=== PATIENT | male | born 1955 | race Caucasian/White ===

== ENCOUNTER 2021-10-27 12:01 | Inpatient (IN) | payer MEDICARE ==
[2021-10-27] VITALS (7 sets, daily range): BP systolic 100–114; BP diastolic 60–78
[~2021-10-27] VITALS: Ht 182.9 cm; Wt 84.0 kg
--- NOTE | 2021-10-27 12:19 | NUR ---
PATIENT TO ROOM VIA WHEELCHAIR AND PHYSICIAN NOTIFIED OF STATUS
[2021-10-27 13:08] LABS: HEMATOCRIT 44.3 % (39.0-50.0); HEMOGLOBIN 15.3 g/dl (14.0-18.0); IMMATURE GRANULOCYTES 0.6 % (0.0-5.0); MEAN CELL VOLUME 101.4 fL CALC (80.0-100.0); MEAN CORPUSCULAR HGB CONC 34.5 g/dL CAL (32.0-36.0); NEUT# 9.92 thou/uL (1.82-7.42); RED BLOOD COUNT 4.37 mill/uL (4.70-6.10); RED CELL DISTRI WIDTH 13.3 % (11.5-15.5)
--- NOTE | 2021-10-27 13:20 | NUR ---
PT ON HIGH FLOW OXYGEN, TOLERATING WELL. DENIES ANY NEEDS AT THIS TIME.
[2021-10-27 13:25] LABS: ALBUMIN 3.6 g/dL (3.2-5.0); ALKALINE PHOSPHATASE 192 u/l (38-126); ANION GAP 13 (6-22 (CALC)); BILIRUBIN, TOTAL 1.9 mg/dL (0.0-1.4); BUN 22 mg/dL (8-23); BUN/CREATININE RATIO 24 (12-20 (CALC)); CARBON DIOXIDE 31 mmol/l (22-30); CHLORIDE 96 mmol/l (95-108); CREATININE 0.9 mg/dL (0.7-1.3); GFR > 60 ML/MIN (>=60 (CALC)); GFR FOR AFR.AMER. > 60 ML/MIN (>=60 (CALC)); POTASSIUM 3.6 mmol/l (3.5-5.1); SGOT/AST 101 u/l (19-48); SODIUM 136 mmol/l (137-146); TOTAL PROTEIN 6.8 g/dL (6.3-8.2)
[2021-10-27 13:36] LABS: MYOGLOBIN 70 ng/mL (0 - 121)
--- NOTE | 2021-10-27 14:31 | NUR ---
PT ORIGINALLY PLACED ON 8 LITER HFNC, WHICH HAD TO BE INCREASED TO 10 LITER HFNC. ABGS DRAWN ON 8 LITER HFNC, AND ON 10 LITER HFNC. PAO2 REMAINED LOW ON THE SECOND ABG. DR. LANGSTON ORDERED CPAP. PT PLACED ON CPAP 14 AT 75%. PTS SATS INCREASED TO 95%-96% ON THOSE SETTINGS. RN/RT TO CONTINUE TO EVALUATE.
--- NOTE | 2021-10-27 14:40 | NUR ---
PATIENT PLACED ON C-PAP BY RESPIRATORY DUE TO ABG RESULTS. PT TOLERATING WELL. DENIES ANY NEEDS AT THIS TIME.
--- NOTE | 2021-10-27 15:40 | NUR ---
PT REMAINS ON C-PAP, TOLERATING WELL. DENIES NEEDS AT THIS TIME.
--- NOTE | 2021-10-27 15:53 | NUR ---
FIO2 DECREASED FROM 75% TO 70%. SATS 97% ON CPAP 14 70%.
--- NOTE | 2021-10-27 17:15 | NUR ---
PT STATES C-PAP IS GIVING HIM A HEADACHE. DENIES ANY FURTHER NEEDS AT THIS TIME.
--- NOTE | 2021-10-27 19:23 | NUR ---
65 yr old white make admitted icu8 per stretcher from er. transferred self to bed. bed weight obtained. o2 cont per 100% nrb. no resp diff. satellite project site monitor shows sinus rhythm hr 83. #20 rac saline lock. history obtained per pt. oriented to room. fall & air/contact precautions initiated. pt requested supper meal he brought from er heated up. rt here & placed on hfnc.
--- NOTE | 2021-10-27 19:30 | NUR ---
BEDSIDE REPORT GIVEN TO STEPHANIE WILDE IN ICU
[2021-10-27] MEDS ORDERED: TRAMADOL HCL50 MG PO (20:35)
[2021-10-27] MEDS ORDERED: NABUMETONE500 MG PO (20:37)
--- NOTE | 2021-10-27 22:00 | NUR ---
eyes closed. no distress. o2 cont.
[2021-10-28] VITALS (14 sets, daily range): BP systolic 95–134; BP diastolic 68–83
--- NOTE | 2021-10-28 | NUR ---
eyes closed. o2 cont. cardiac tech shows sinus rhythm.
--- NOTE | 2021-10-28 02:00 | NUR ---
resting quietly. resps even & unlabored. o2 cont.
--- NOTE | 2021-10-28 04:00 | NUR ---
eyes closed. no distress. o2 cont.
--- NOTE | 2021-10-28 05:34 | NUR ---
lab here. blood drawn.
[2021-10-28 06:05] LABS: HEMATOCRIT 39.5 % (39.0-50.0); HEMOGLOBIN 13.5 g/dl (14.0-18.0); IMMATURE GRANULOCYTES 1.5 % (0.0-5.0); MEAN CELL VOLUME 102.1 fL CALC (80.0-100.0); MEAN CORPUSCULAR HGB 34.9 pG CALC (26.0-32.0); MEAN CORPUSCULAR HGB CONC 34.2 g/dL CAL (32.0-36.0); NEUT# 4.37 thou/uL (1.82-7.42); RED BLOOD COUNT 3.87 mill/uL (4.70-6.10); RED CELL DISTRI WIDTH 13.5 % (11.5-15.5)
[2021-10-28 06:44] LABS: ALKALINE PHOSPHATASE 156 u/l (38-126); BUN 21 mg/dL (8-23); BUN/CREATININE RATIO 26 (12-20 (CALC)); CARBON DIOXIDE 34 mmol/l (22-30); CHLORIDE 103 mmol/l (95-108); CREATININE 0.8 mg/dL (0.7-1.3); GFR > 60 ML/MIN (>=60 (CALC)); GFR FOR AFR.AMER. > 60 ML/MIN (>=60 (CALC)); SGOT/AST 68 u/l (19-48); SODIUM 138 mmol/l (137-146)
[2021-10-28 06:51] LABS: ALBUMIN 2.7 g/dL (3.2-5.0); ANION GAP 6 (6-22 (CALC))
--- NOTE | 2021-10-28 20:30 | NUR ---
awake. no acute resp distress. o2 cont per vapotherm. secured entrance monitor shows sinus rhythm. #20 rac saline lock. po fluids taken well. voids per urinal. covid teaching done. assisted to bedside chair x1 assist. fall & air/contact precautions cont. tramadol 50mo po given per request for pain.
--- NOTE | 2021-10-28 23:00 | NUR ---
assisted back to bed. guicho well.
[2021-10-29] VITALS (23 sets, daily range): BP systolic 95–127; BP diastolic 66–80
--- NOTE | 2021-10-29 00:01 | NUR ---
eyes closed. no resp diff.
--- NOTE | 2021-10-29 02:00 | NUR ---
resting quietly. resps even & unlabored. o2 cont.
--- NOTE | 2021-10-29 05:00 | NUR ---
xray here. pcxr obtained.
[2021-10-29 05:40] LABS: HEMATOCRIT 38.4 % (39.0-50.0); HEMOGLOBIN 13.3 g/dl (14.0-18.0); IMMATURE GRANULOCYTES 1.1 % (0.0-5.0); MEAN CELL VOLUME 102.7 fL CALC (80.0-100.0); MEAN CORPUSCULAR HGB 35.6 pG CALC (26.0-32.0); MEAN CORPUSCULAR HGB CONC 34.6 g/dL CAL (32.0-36.0); NEUT# 5.76 thou/uL (1.82-7.42); RED BLOOD COUNT 3.74 mill/uL (4.70-6.10); RED CELL DISTRI WIDTH 13.5 % (11.5-15.5)
[2021-10-29 06:02] LABS: ALBUMIN 2.5 g/dL (3.2-5.0); ALKALINE PHOSPHATASE 162 u/l (38-126); ANION GAP 7 (6-22 (CALC)); BILIRUBIN, TOTAL 0.9 mg/dL (0.0-1.4); BUN 20 mg/dL (8-23); BUN/CREATININE RATIO 27 (12-20 (CALC)); CARBON DIOXIDE 32 mmol/l (22-30); CHLORIDE 103 mmol/l (95-108); CREATININE 0.7 mg/dL (0.7-1.3); GFR > 60 ML/MIN (>=60 (CALC)); GFR FOR AFR.AMER. > 60 ML/MIN (>=60 (CALC)); MAGNESIUM 2.4 mg/dL (1.6-2.3); POTASSIUM 4.6 mmol/l (3.5-5.1); SGOT/AST 90 u/l (19-48); SODIUM 137 mmol/l (137-146); TOTAL PROTEIN 4.8 g/dL (6.3-8.2)
--- NOTE | 2021-10-29 11:37 | NUR ---
PT AWAKE, ALERT, ORIENTED X 3. PT AT REST IN THE BED WITH VAPOTHERM IN PLACE, 40/100. PT ENCOURAGED TO BE ACTIVE IN ROOM POSSIBLE. DR DRUMMOND HAS SEEN PT.
--- NOTE | 2021-10-29 12:54 | NUR ---
PT REMAINS AT REST IN THE BED WITH VAPOTHERM IN PLACE. SATS REMAIN IN THE UPPER 80s. PT ABLE TO EAT LUNCH. NAD.
--- NOTE | 2021-10-29 16:27 | NUR ---
PT OOB IN CHAIR FOR SEVERAL HOURS TODAY, GREW TIRED AND WAS ASSISTED BACK INTO BED. SATS CONTINUE MID 80s TO LOW 90s ON VAPOTHERM.
--- NOTE | 2021-10-29 19:00 | NUR ---
REPORT RECEIVED FROM Olga MCCLENDON RN. CARE OF PT ASSUMED AT THIS TIME.
--- NOTE | 2021-10-29 19:45 | NUR ---
CALL RECEIVED FROM DR. DRUMMOND. UPDATES ON PT'S CURRENT STATUS PROVIDED. PLAN OF CARE DISCUSSED. NO CHANGES. NO NEW ORDERS.
--- NOTE | 2021-10-29 20:48 | NUR ---
LOVENOX INJECTION ADMINISTERED TO L-SIDE LOWER ABD. SEE E-MAR.
[2021-10-30] VITALS (24 sets, daily range): BP systolic 91–136; BP diastolic 53–82
--- NOTE | 2021-10-30 05:30 | NUR ---
Gurdeep SHAH, LUZ ELENA, IN ROOM COLLECTING AM LABS.
--- NOTE | 2021-10-30 05:53 | NUR ---
Prabhu CHEUNG RT IN ROOM PERFORMING PCXR.
[2021-10-30 06:08] LABS: HEMATOCRIT 39.4 % (39.0-50.0); HEMOGLOBIN 13.5 g/dl (14.0-18.0); MEAN CELL VOLUME 102.1 fL CALC (80.0-100.0); MEAN CORPUSCULAR HGB CONC 34.3 g/dL CAL (32.0-36.0); NEUT# 6.24 thou/uL (1.82-7.42); RED BLOOD COUNT 3.86 mill/uL (4.70-6.10); RED CELL DISTRI WIDTH 13.5 % (11.5-15.5)
[2021-10-30 06:23] LABS: ALBUMIN 2.5 g/dL (3.2-5.0); ALKALINE PHOSPHATASE 145 u/l (38-126); ANION GAP 7 (6-22 (CALC)); BILIRUBIN, TOTAL 1.1 mg/dL (0.0-1.4); BUN 19 mg/dL (8-23); BUN/CREATININE RATIO 25 (12-20 (CALC)); CARBON DIOXIDE 31 mmol/l (22-30); CHLORIDE 103 mmol/l (95-108); CREATININE 0.8 mg/dL (0.7-1.3); GFR > 60 ML/MIN (>=60 (CALC)); GFR FOR AFR.AMER. > 60 ML/MIN (>=60 (CALC)); MAGNESIUM 2.3 mg/dL (1.6-2.3); POTASSIUM 4.6 mmol/l (3.5-5.1); SGOT/AST 55 u/l (19-48); SODIUM 137 mmol/l (137-146); TOTAL PROTEIN 4.8 g/dL (6.3-8.2)
--- NOTE | 2021-10-30 06:45 | NUR ---
REPORT RECIEVED FROM KEYONA BROWN. CARE ASSUMED.
--- NOTE | 2021-10-30 07:14 | NUR ---
pt on hhfnc 40lpm/100% spo2=92. nad. vss. director of market intelligence to monitor.
--- NOTE | 2021-10-30 07:50 | NUR ---
PATIENT RESTING IN BED AWAKE. PATIENT IS ALERT AND ORIENTED X3. SHIFT ASSESSMENT COMPLETED AT THIS TIME. IV PATENT X1. PATIENT ASSISTED UP TO CHAIR AT THIS TIME. O2 SATS DECREASED TO 70S. PATIENT ENCOURAGED TO TAKE SLOW DEEP BREATHS. PATIENT VERBALIZED UNDERSTANDING. CALL LIGHT IN REACH. WILL CONTINUE TO MONITOR
--- NOTE | 2021-10-30 10:00 | NUR ---
PATIENT SITTING UP IN CHAIR WATCHING TV. RESP ARE EVEN AND UNLABORED. NO DISTRESS NOTED. CALL LIGHT IN REACH. WILL CONTINUE TO MONITOR.
--- NOTE | 2021-10-30 12:15 | NUR ---
PATIENT SITTING UP IN CHAIR EATING LUNCH AT THIS TIME. RESP ARE EVEN AND UNLABORED. NO DISTRESS NOTED CALL LIGHT IN REACH. WILL CONTINUE TO MONITOR.
--- NOTE | 2021-10-30 14:31 | NUR ---
VAPOTHERM TITRATED TO 90% 30L O2 SATS REMAIN 92% GREATER.
--- NOTE | 2021-10-30 15:12 | NUR ---
PATIENT NO LONGER LAYING ON SIDE. PATIENT RESTING ON BACK AND SATS DROPPED TO 70S INCREASED O2 TO 40L 100%.
--- NOTE | 2021-10-30 16:08 | NUR ---
pt resting in bed. no acute distress noted at this time. cullet trucker to monitor.
--- NOTE | 2021-10-30 18:00 | NUR ---
PATIENT SITTING UP IN BED EATING DINNER NO DISTRESS NOTED. CALL LIGHT INR EACH. WILL CONTINUE TO MONITOR.
--- NOTE | 2021-10-30 19:00 | NUR ---
REPORT RECEIVED FROM Mary LAWSON RN. CARE OF PT ASSUMED AT THIS TIME.
--- NOTE | 2021-10-30 21:14 | NUR ---
PT ASSISTED TO TURN ONTO HIS RIGHT SIDE. SPO2 INCREASES FROM 81% TO 93%.
[2021-10-31] VITALS (19 sets, daily range): BP systolic 81–127; BP diastolic 56–75
--- NOTE | 2021-10-31 04:49 | NUR ---
Prabhu VILLEGAS INSPECTOR BULLET SLUGS IN ROOM COLLECTING AM LABS.
--- NOTE | 2021-10-31 04:56 | NUR ---
Felix CARRIZALES RT IN ROOM PERFORMING PCXR.
[2021-10-31 05:30] LABS: HEMATOCRIT 39.8 % (39.0-50.0); HEMOGLOBIN 13.7 g/dl (14.0-18.0); MEAN CORPUSCULAR HGB 34.8 pG CALC (26.0-32.0); MEAN CORPUSCULAR HGB CONC 34.4 g/dL CAL (32.0-36.0); NEUT# 6.39 thou/uL (1.82-7.42); RED BLOOD COUNT 3.94 mill/uL (4.70-6.10); RED CELL DISTRI WIDTH 13.5 % (11.5-15.5)
[2021-10-31 05:49] LABS: ALBUMIN 2.4 g/dL (3.2-5.0); ALKALINE PHOSPHATASE 128 u/l (38-126); ANION GAP 8 (6-22 (CALC)); BILIRUBIN, TOTAL 0.9 mg/dL (0.0-1.4); BUN 20 mg/dL (8-23); BUN/CREATININE RATIO 35 (12-20 (CALC)); CARBON DIOXIDE 28 mmol/l (22-30); CHLORIDE 106 mmol/l (95-108); CREATININE 0.6 mg/dL (0.7-1.3); GFR > 60 ML/MIN (>=60 (CALC)); GFR FOR AFR.AMER. > 60 ML/MIN (>=60 (CALC)); MAGNESIUM 2.4 mg/dL (1.6-2.3); POTASSIUM 4.4 mmol/l (3.5-5.1); SGOT/AST 42 u/l (19-48); SODIUM 138 mmol/l (137-146); TOTAL PROTEIN 4.7 g/dL (6.3-8.2)
--- NOTE | 2021-10-31 06:35 | NUR ---
CALL RECEIVED FROM RADIOLOGY, SUBQ EMPHYSEMA NOTED AND PCXR ON EXPIRATION REPEAT NEEDED. ON EXAM SOME CREPITUS NOTED TO NECK. PT DENIES PAIN, SOB, OR ACUTE CHANGES.
--- NOTE | 2021-10-31 06:41 | NUR ---
Felix CARRIZALES RT IN ROOM PERFORMING PCXR.
--- NOTE | 2021-10-31 06:45 | NUR ---
REPORT RECEIVED FROM KEYONA BROWN. CARE ASSUMED.
--- NOTE | 2021-10-31 07:40 | NUR ---
PATIENT RESTING IN BED WITH EYES CLOSED. AROUSES TO VERBAL STIMULI. PATIENT. IS ALERT AND ORIENTED X3. SHIFT ASSESSMENT COMPLETED AT THIS TIME. IV PATENT X1. OFFERRED TO ASSIST PATIENT UP TO CHAIR AT THIS TIME. PATIENT STATES THAT HE IS TIRED. INQUIRED WITH PATIENT IF THAT IT IS BECUASE OF LABORED BREATHING PATIENT STATES THAT THE NIGHTS ARE LONG. ENCOURAGE PATIENT TO FACE TIME WITH FAMILY TO AVOID LONELINESS AND DEPRESSION ENCOURAGED PATIENT TO TAKE SLEEPING MEDICATION WELL TO AID IN SLEEP. PATIENT VERBALIZED UNDERSTANDING. CALL LIGHT IN REACH. WILL CONTINUE TO MONITOR.
--- NOTE | 2021-10-31 07:49 | NUR ---
pt c nad at this time. vss. resting comfortably in bed. brake repairer bus to monitor.
--- NOTE | 2021-10-31 08:03 | NUR ---
PATIENT REFUSING AM MEAL AT THIS TIME HOWEVER AGREES TO DRINK PULMOCARE.
--- NOTE | 2021-10-31 08:30 | NUR ---
DR DRUMMOND AT BEDSIDE AT THIS TIME.
--- NOTE | 2021-10-31 10:06 | NUR ---
PATIENT ASSISTED UP TO BSC THEN ASSISTED UP TO RECLINER. PLACED ON NRB 15L. WILL CONTINUE TO MONITOR.
--- NOTE | 2021-10-31 11:31 | NUR ---
pt olesya alarcon. vss. remanufacturing technician to monitor. eating lunch.
--- NOTE | 2021-10-31 12:00 | NUR ---
PATIENT SITTING UP IN RECLINER EATING LUNCH AT THIS TIME. CALL LIGHT IN REACH. WILL CONTINUE TOMONITOR.
--- NOTE | 2021-10-31 12:54 | NUR ---
O2 AT 91-93% WITH VAPO AND NRB. CALL LIGHT IN REACH. WILL CONTINUE TOMONITOR.
--- NOTE | 2021-10-31 14:00 | NUR ---
PATIENT SITTING UP IN RECLINER. PATIENT REPORTS FEELING BETTER AT THIS TIME. WILL CONTINUE TOMONITLR.
--- NOTE | 2021-10-31 16:00 | NUR ---
PATIENT SITTING UP IN RECLINER. RESP ARE EVEN AND UNLABORED. NO DISTRESS NOTED. VSS ON MONITOR. CALL LIGHT IN REACH. WILL CONTINUE TO THERESA
--- NOTE | 2021-10-31 18:00 | NUR ---
PATIENT SET UP FOR PM MEAL. DISCUSSED WITH PATIENT THAT WHEN GOING TO BED TONIGHT THAT HE SHOULD TRY TO SLEEP ON SIDE AND USE NRB TO GET REST AND TRY TO TAKE SLEEPING PILL AND HAVE A GOOD NIGHTS REST. PATIENT IN AGREEMENT. DISCUSSED THE BENEFITS OF REST. CALL LIGHT IN REACH. WILL ONTINUE TO MONITOR.
--- NOTE | 2021-10-31 20:00 | NUR ---
awake. sitting in bedside chair. o2 cont 40 l/m 100% per vapotherm & 100% nrb. sob w exertion but denies distress. bus driver/monitor shows sinus rhythm pacs pvcs. #20 rac saline lock. po fluids taken poor. urine remains lisette colored. fall & air/contact precautions cont.
--- NOTE | 2021-10-31 21:00 | NUR ---
sonata 5 mg po given for sleep.
--- NOTE | 2021-10-31 22:00 | NUR ---
assisted to bed. guicho well.
[2021-11-01] VITALS (17 sets, daily range): BP systolic 85–133; BP diastolic 52–83
--- NOTE | 2021-11-01 00:01 | NUR ---
eyes closed. no distress. o2 cont.
--- NOTE | 2021-11-01 02:00 | NUR ---
resting quietly. resps even & unlabored. no apparent distress.
--- NOTE | 2021-11-01 04:30 | NUR ---
lab here. blood drawn.
[2021-11-01 05:49] LABS: HEMATOCRIT 41.7 % (39.0-50.0); HEMOGLOBIN 14.1 g/dl (14.0-18.0); IMMATURE GRANULOCYTES 1.4 % (0.0-5.0); MEAN CELL VOLUME 102.5 fL CALC (80.0-100.0); MEAN CORPUSCULAR HGB 34.6 pG CALC (26.0-32.0); MEAN CORPUSCULAR HGB CONC 33.8 g/dL CAL (32.0-36.0); NEUT# 11.44 thou/uL (1.82-7.42); RED BLOOD COUNT 4.07 mill/uL (4.70-6.10); RED CELL DISTRI WIDTH 13.6 % (11.5-15.5)
--- NOTE | 2021-11-01 06:04 | NUR ---
xray here. pcsr obtained.
[2021-11-01 06:14] LABS: ALBUMIN 2.4 g/dL (3.2-5.0); ALKALINE PHOSPHATASE 110 u/l (38-126); ANION GAP 9 (6-22 (CALC)); BUN 22 mg/dL (8-23); BUN/CREATININE RATIO 38 (12-20 (CALC)); CARBON DIOXIDE 26 mmol/l (22-30); CHLORIDE 106 mmol/l (95-108); CREATININE 0.6 mg/dL (0.7-1.3); GFR > 60 ML/MIN (>=60 (CALC)); GFR FOR AFR.AMER. > 60 ML/MIN (>=60 (CALC)); MAGNESIUM 2.4 mg/dL (1.6-2.3); POTASSIUM 4.7 mmol/l (3.5-5.1); SGOT/AST 40 u/l (19-48); SODIUM 137 mmol/l (137-146); TOTAL PROTEIN 4.6 g/dL (6.3-8.2)
--- NOTE | 2021-11-01 07:30 | NUR ---
PT RESTING QUIETLY IN BED, NO COMPLAINTS AT THIS TIME. PT REMAINS ON VAPOTHERM AND NRB WITH SATS IN HIGH 80'S PT DID NOT SLEEP WELL LAST NIGHT, ASKING IF AN ANTI DEPRESSENT MIGHT HELP. VITAL SIGNS STABLE.
--- NOTE | 2021-11-01 07:44 | NUR ---
pt resting comfortably c nad. vss. data management specialist to monitor.
--- NOTE | 2021-11-01 11:06 | NUR ---
PT REMAINS RESTING IN BED WATCHING TV, SATS REMAIN IN THE UPPER 80'S LOW 90'S ON VAPOTHERM AND NRB. AT THIS TIME PT DOES NOT HAVE ANY COMPLAINTS.
--- NOTE | 2021-11-01 13:17 | NUR ---
ADVISED PT THAT FAMILY HAD CALLED AND REQUESTED UPDATE. PT HAD TAKEN OFF NRB TO EAT LUNCH AND SATS HAD DROPPED DOWN TO LOW 80'S, WENT BACK UP TO HIGH 80'S LOW 90'S WHEN PLACED NRB BACK ON. DENIES ANY SOB, NO COUGHING HEARD ON THIS WRITERS SHIFT. PT IS USING SPIROMETER FOR BREATHING 2-3 TIMES THIS AM
--- NOTE | 2021-11-01 16:10 | NUR ---
PT UP TO BEDSIDE COMMODE TOOK NRB OFF TO GET UP AND SATS DROPPED DOWN TO 81 BUT REPLACED WITH NRB SOON PT GOT INTO CHAIR AND SAT DOWN. STATES FELT A LITTLE SOB BUT NOT BAD. DENIES ANY COMPLAINTS AT THIS TIME. PT SITTING ON PHONE WATCHING TV.
--- NOTE | 2021-11-01 18:35 | NUR ---
PT RESTING QUIETLY ON BED, WITH SATS IN LOW 90'S. NO CHANGE, NO COMPLAINTS
--- NOTE | 2021-11-01 20:00 | NUR ---
assisted to bsc then to bed. guicho well. sob with exert. o2 cont 40L 100% per vapotherm & 100% nrb. vehicle monitor technician shows sinus rhythm pacs pvcs, #20 rac saline lock. po fluids taken fair. voids per urinal. fall & air/contact precautions cont. covid teaching done. unable to prone but does lay flat & on side. sao2 went from 89% to 94%
--- NOTE | 2021-11-01 20:30 | NUR ---
robitussin 10cc & sonata 5mg given for sleep & cough.
--- NOTE | 2021-11-01 22:00 | NUR ---
eyes closed. no distress.
[2021-11-02] VITALS (15 sets, daily range): BP systolic 93–133; BP diastolic 54–86
--- NOTE | 2021-11-02 00:01 | NUR ---
sao2 88%. pt on back. instructed to reposition on rt side. pt complied. sao2 increased to 94%.
--- NOTE | 2021-11-02 02:00 | NUR ---
sao2 84%. pt on his back. repositioned onto rt side. sao2 increased to 95%.
--- NOTE | 2021-11-02 04:00 | NUR ---
eyes closed. laying on rt side. no distress.
--- NOTE | 2021-11-02 05:44 | NUR ---
lab here. blood drawn.
[2021-11-02 06:07] LABS: HEMATOCRIT 43.3 % (39.0-50.0); IMMATURE GRANULOCYTES 1.1 % (0.0-5.0); MEAN CELL VOLUME 102.1 fL CALC (80.0-100.0); MEAN CORPUSCULAR HGB 35.4 pG CALC (26.0-32.0); MEAN CORPUSCULAR HGB CONC 34.6 g/dL CAL (32.0-36.0); NEUT# 15.87 thou/uL (1.82-7.42); RED BLOOD COUNT 4.24 mill/uL (4.70-6.10); RED CELL DISTRI WIDTH 13.5 % (11.5-15.5)
[2021-11-02 06:39] LABS: ALBUMIN 2.4 g/dL (3.2-5.0); ALKALINE PHOSPHATASE 111 u/l (38-126); ANION GAP 7 (6-22 (CALC)); BILIRUBIN, TOTAL 1.1 mg/dL (0.0-1.4); BUN 21 mg/dL (8-23); BUN/CREATININE RATIO 36 (12-20 (CALC)); CARBON DIOXIDE 30 mmol/l (22-30); CHLORIDE 105 mmol/l (95-108); CREATININE 0.6 mg/dL (0.7-1.3); GFR > 60 ML/MIN (>=60 (CALC)); GFR FOR AFR.AMER. > 60 ML/MIN (>=60 (CALC)); POTASSIUM 4.6 mmol/l (3.5-5.1); SGOT/AST 40 u/l (19-48); SODIUM 137 mmol/l (137-146); TOTAL PROTEIN 4.6 g/dL (6.3-8.2)
--- NOTE | 2021-11-02 07:00 | NUR ---
REPORT RECEIVED FROM STEPHANIE WILDE. PT AWAKE ALERT AND APPROPRIATE. PT WEARING VAPOTHERM @ 40L AND NRB AT 100% PT ASSISTED TO THE BSC, SPO2 DROPS TO 65% WITH MINIMAL EXERTION. PT SAFELY ASSISTED BACK TO BED. CALL LIGHT WITHIN REACH. INSTRUCTED PT TO CALL FOR ASSISTANCE, VERBALIZES UNDERSTANDING.
--- NOTE | 2021-11-02 09:30 | NUR ---
DR. ROBERTO IN TO SEE PATIENT. DISCUSSION OF PT'S CARE GONE OVER. PT IS AGREABLE TO INTUBATION AND TRANSFER TO OUTSIDE FACILITY FOR HIGHER LEVEL OF CARE. DR. ROBERTO, ALSO EXPLAINED THAT WE WOULD NOT INTUBATE UNLESS WE HAD A BED AVAILABLE TO ACCEPT PT, OR UNTIL THE PT'S CONDITION ABSOLUTELY REQUIRED ADVANCED AIRWAY WITH VENTILATION SUPPORT. PT STATES UNDERSTANDING. WILL KEEP UPDATED INFORMATION BECOMES AVAILABLE. RT NOTIFIED OF POC
--- NOTE | 2021-11-02 09:52 | NUR ---
SPOKE WITH VICK AND THERON AT [facility] TRANSFER CENTER. FACESHEET AND COVID LAB RESULT SENT TO TRANSFER CENTER. WILL AWAIT FURTHER INFORMATION FROM TRANSFER CENTER.
--- NOTE | 2021-11-02 10:00 | NUR ---
PT FAMILY LÓPEZ (SON) ON PHONE TO DISCUSS AND GET UPDATE TO POC. FAMILY INFORMED OF PT'S CONTINUAL DECLINE IN CARE. DISCUSSION OF INTUBATION AND TRANSFER TO OUTSIDE FACILITY FOR HIGHER LEVEL OF CARE GONE OVER. FAMILY STATES UNDERSTANDING. WILL UPDATE FAMILY INFORMATION IS AVAILABLE.
--- NOTE | 2021-11-02 10:12 | NUR ---
SPOKE WITH SECONDARY MARKET MANAGER RAN AT [facility], FOR LAURA. UNABLE TO TRANSFER AT THIS TIME. [facility] FACILITY IS AT MAXIMUM CAPACITY.
--- NOTE | 2021-11-02 10:25 | NUR ---
NURSING STONE CRUSHER OPERATOR KIM FROM [facility] NOTIFIED OF PTS NEED FOR TRANSFER. INFORMATION FACESHEET AND COVID POSITIVE LAB FAXED TO FACILITY.
--- NOTE | 2021-11-02 10:50 | NUR ---
THERON FROM [facility] TRANSFER C[facility] ON THE LINE. REFUSAL OF TRANSFER GIVEN AT THIS TIME. STATES ICU IS AT COVID CAPACITY. WILL NOTIFY
--- NOTE | 2021-11-02 13:50 | NUR ---
KINNEY CATHETER PLACED AT THIS TIME R/T PT'S CONTINUAL SOB WITH EXERTION. PT GIVEN EDUCATION OF BEDPAN, STATES UNDERSTANDING. REMDESIVIR INFUSING THROUGH PATENT IV SITE. SPO2 MONITOR CHANGED. SPO2 REMAINS BETWEEN 77-90% WITH 40L OF VAPOTHERM AND 100% NRB. PT STATES "I JUST FEEL SO WEAK." POSITIVE ENCOURAGEMENT PROVIDED. INFORMED PT OF POC FOR INTUBATION AND TRANSFER. STATES UNDERSTANDING OF OUTSIDE FACILITIES BEING AT MAXIMUM CAPACITY. WILL CONTINUE PLAN OF CARE HERE. PT INSTRUCTED TO CALL FOR ANY TYPE OF ASSISTANCE, VERBALIZES UNDERSTANDING.
--- NOTE | 2021-11-02 15:00 | NUR ---
PT RESTING IN BED SEMI-FOWLERS. REFUSING TO PRONE AT THIS TIME. PT GIVEN UPDATE TO TRANSFER, WITH NO BED AVAILABILITY IN ANY OF THE SURROUNDING HOSPITALS. STATES UNDERSTANDING. SPO2 IS BETWEEN 88-92%. DENIES PAIN SOB OR DISCOMFORT.
--- NOTE | 2021-11-02 18:20 | NUR ---
PT ATTEMPTING TO EAT DINNER. NONRE-BREATHER TAKEN OFF TO DRINK PULMICORT, SPO2 QUICKLY GOES FROM 88% TO 69%. PT INSTRUCTED TO PUT THE NON-REBREATHER BACK ON. ABLE TO DO SO INDEPENDANTLY. SPO2 SLOWLY GOES TO 78-83% AFTER SEVERAL MINUTES. WILL ENCOURAGE SMALL SIPS OF PULMICORE.
--- NOTE | 2021-11-02 19:45 | NUR ---
awake. in semifowlers position. resps labored with exert. o2 cont 40 l/m 100% vapotherm & 100% nrb. concrete layer shows sinus tach hr 101. #20 rac saline lock. takes sips of water. desats quickly. wooten cath in place. urine clear yellow. fall & air/contact precautions cont. covid teaching done.
--- NOTE | 2021-11-02 20:30 | NUR ---
robitussin 10cc & sonata 5mg po given for cough & sleep. repositioned pt. hob flat & laying on rt side. sao2 went from 84% to 94%.
[2021-11-03] VITALS (11 sets, daily range): BP systolic 98–128; BP diastolic 65–84
--- NOTE | 2021-11-03 00:01 | NUR ---
taking short naps. o2 cont. cardiac monitot shows sinus rhythm.
--- NOTE | 2021-11-03 02:00 | NUR ---
eyes closed. remains on rt side. o2 cont.
--- NOTE | 2021-11-03 04:00 | NUR ---
awake. said "i so tired." spoke @ length about deterioration of condition over days. spoke to pt about possible bipap then intubation. pt said "i'm ok with that." encouraged pt to stay on rt said as o2 sat is better in that position. pt verbalized understanding & complied.
--- NOTE | 2021-11-03 04:59 | NUR ---
lab here. blood drawn.
[2021-11-03 05:49] LABS: IMMATURE GRANULOCYTES 0.9 % (0.0-5.0); MEAN CELL VOLUME 99.8 fL CALC (80.0-100.0); MEAN CORPUSCULAR HGB CONC 35.1 g/dL CAL (32.0-36.0); NEUT# 26.03 thou/uL (1.82-7.42); RED BLOOD COUNT 4.91 mill/uL (4.70-6.10); RED CELL DISTRI WIDTH 13.4 % (11.5-15.5)
[2021-11-03 05:55] LABS: HEMOGLOBIN 17.2 g/dl (14.0-18.0)
[2021-11-03 06:21] LABS: ALBUMIN 2.6 g/dL (3.2-5.0); ALKALINE PHOSPHATASE 135 u/l (38-126); ANION GAP 11 (6-22 (CALC)); BILIRUBIN, TOTAL 1.6 mg/dL (0.0-1.4); BUN 21 mg/dL (8-23); BUN/CREATININE RATIO 37 (12-20 (CALC)); CARBON DIOXIDE 27 mmol/l (22-30); CHLORIDE 102 mmol/l (95-108); CREATININE 0.6 mg/dL (0.7-1.3); GFR > 60 ML/MIN (>=60 (CALC)); GFR FOR AFR.AMER. > 60 ML/MIN (>=60 (CALC)); POTASSIUM 4.6 mmol/l (3.5-5.1); SGOT/AST 68 u/l (19-48); SODIUM 135 mmol/l (137-146)
--- NOTE | 2021-11-03 07:58 | NUR ---
PT SEEN AWAKE, ALERT, ORIENTED X 3. LUNGS CLEAR. PT REQUESTING TO BE INTUBATED. RT LORRI IN TO SPEAK WITH PT, WHO AGREED TO BIPAP. PT PLACED ON BIPAP, GAVE THUMBS UP.
--- NOTE | 2021-11-03 11:52 | NUR ---
PT DOING WELL ON BIPAP, APPRECIATES THE RESPIRATORY ASSIST THAT IT PROVIDES. SON LÓPEZ AND GARRETT HAVE CALLED FOR UPDATES.
[2021-11-03 12:51] LABS: C-REACTIVE PROTEIN 3.4 mg/dL (0-0.9)
--- NOTE | 2021-11-03 16:06 | NUR ---
PT RECEIVED ABX THIS AFTERNOON WITHOUT INCIDENT. PT UPDATED ON RESULTS FROM PCXR AND LABS, ALL WORSE. SATURATION MONITOR SHOWS 93-95% SINCE IT WAS PLACED ON RING FINGER BY DEREK. CPAP REMAINS IN PLACE.
--- NOTE | 2021-11-03 18:45 | NUR ---
REPORT RECEIVED FROM REA BROWN. CARE ASSUMED.
--- NOTE | 2021-11-03 20:17 | NUR ---
BIPAP MASK FELL OFF UNDER BRIM OF NOSE AND O2 SAT IMMEADAITELY DROPPED TO THE 30S THEN TO 23. BIPAP MASK FIXED AND PATIENT O2 SATS RECOVERED TO MID 80S WITHIN 15 MINUTES. CALL LIGHT IN REACH. WILL COTNINUE TO MONITOR.
--- NOTE | 2021-11-03 22:00 | NUR ---
PT APPEARS TO BE SLEEPING COMFORTABLY. NO APPARENT DISTRESS. CPAP SECURED AND RESPIRATIONS REGULAR AND UNLABORED. SPO2 89-93%. CALL EDWARDS WITHIN REACH.
[2021-11-04] VITALS (76 sets, daily range): BP systolic 73–141; BP diastolic 49–106
--- NOTE | 2021-11-04 | NUR ---
PT APPEARS TO BE SLEEPING COMFORTABLY. NO APPARENT DISTRESS. CPAP SECURED AND RESPIRATIONS REGULAR AND UNLABORED. SPO2 89-93%. CALL EDWARDS WITHIN REACH.
--- NOTE | 2021-11-04 05:17 | NUR ---
Gurdeep SHAH ADVANCED MANAGER IN ROOM COLLECTING LABS.
[2021-11-04 05:49] LABS: HEMATOCRIT 48.5 % (39.0-50.0); HEMOGLOBIN 16.9 g/dl (14.0-18.0); IMMATURE GRANULOCYTES 1.1 % (0.0-5.0); MEAN CELL VOLUME 98.6 fL CALC (80.0-100.0); MEAN CORPUSCULAR HGB 34.3 pG CALC (26.0-32.0); MEAN CORPUSCULAR HGB CONC 34.8 g/dL CAL (32.0-36.0); RED BLOOD COUNT 4.92 mill/uL (4.70-6.10); RED CELL DISTRI WIDTH 13.6 % (11.5-15.5)
[2021-11-04 06:05] LABS: MANUAL DIFFERENTIAL YES; PLATELET COUNT 47 thou/uL (130-400)
[2021-11-04 06:17] LABS: ALBUMIN 2.7 g/dL (3.2-5.0); ALKALINE PHOSPHATASE 141 u/l (38-126); ANION GAP 11 (6-22 (CALC)); BILIRUBIN, TOTAL 2.2 mg/dL (0.0-1.4); BUN 27 mg/dL (8-23); BUN/CREATININE RATIO 46 (12-20 (CALC)); C-REACTIVE PROTEIN 3.3 mg/dL (0-0.9); CARBON DIOXIDE 25 mmol/l (22-30); CHLORIDE 104 mmol/l (95-108); CREATININE 0.6 mg/dL (0.7-1.3); GFR > 60 ML/MIN (>=60 (CALC)); GFR FOR AFR.AMER. > 60 ML/MIN (>=60 (CALC)); SGOT/AST 91 u/l (19-48); SODIUM 135 mmol/l (137-146); TOTAL PROTEIN 4.9 g/dL (6.3-8.2)
[2021-11-04 06:55] LABS: BAND 1 % (0-8)
--- NOTE | 2021-11-04 07:57 | NUR ---
PT SEEN AWAKE, ALERT, ORIENTED X 3. LUNGS CLEAR, PT ON BIPAP AT THIS TIME. PT INCONTINENT OF STOOL THIS MORNING, TOOK SEVERAL MINUTES TO RECOVER. PT DID NOT WANT TO EAT BREAKFAST. NO ACUTE DISTRESS NOTED, ALTHOUGH PT APPEARS TO BE TIRING FROM EFFORT TO BREATHE BETTER.
[2021-11-04 08:18] LABS: URINE BILIRUBIN - DIPSTICK NEGATIVE (NEGATIVE); URINE BLOOD DIPSTICK LARGE (NEGATIVE); URINE GLUCOSE - DIPSTICK 250 mg/dL (NEGATIVE); URINE KETONE 15 mg/dL (NEGATIVE); URINE LEUK ESTERASE NEGATIVE (NEGATIVE); URINE PROTEIN - DIPSTICK 30 mg/dL (NEG-TRACE); URINE SPECIFIC GRAVITY >=1.030; URINE UROBILINOGEN - DIPSTICK 0.2 E.U./dL (0.2)
[2021-11-04 08:37] LABS: URINE COLOR DK. YELLOW; URINE NITRITE - DIPSTICK NEGATIVE (Negative); URINE RBC >100 RBC/hpf (0-5)
[2021-11-04 08:38] LABS: URINE SQUAMOUS EPITHELIAL CELL RARE EPI/hpf (0-FEW); URINE WBC 0-2 WBC/hpf (0-5)
--- NOTE | 2021-11-04 15:44 | NUR ---
PT HAS REQUIRED INTUBATION EARLIER TODAY. THE BIPAP MASK WAS REMOVED TO ALLOW HIM A DRINK OF WATER, BUT PT COULD NOT SUCK WATER UP STRAW PER WEAKNESS. MASK WAS REPLACED, BUT SATS DID NOT COME UP. DR CHOE AND RESPIRATORY TEAM WERE SUMMONED, THEN ANESTHESIOLOGIST PROCEDED TO INTUBATE. AT THIS TIME, SATS ARE SEEN 80%, PT ON DIPRIVAN AT 50 MKM, NEOSYNEPHRINE AT 0.6 MKM. RESTRAINTS APPLIED TO PREVENT PT FROM REMOVING TUBE ALTHOUGH HE IS NOT AWAKE AT THIS TIME. SON LÓPEZ WAS ABLE TO SPEAK WITH FATHER JUST PRIOR TO INTUBATION AND HE HAS BEEN UPDATED SINCE THAT TIME. LÓPEZ SENT COPY OF LIVING WILL BY FAX, TO SHOW DR CHOE IN AM.
--- NOTE | 2021-11-04 18:38 | NUR ---
PT WITH CENTRAL LINE PLACED BY DR VAZQUEZ, NOW WITH NEOSYNEPHRINE AND PROPOFOL RUNNING, RATES CHANGING WITH LATEST BP. 103/59, 86% HR 131. SON LÓPEZ CALLED FOR CONSENT FOR CENTRAL LINE.
--- NOTE | 2021-11-04 19:36 | NUR ---
SPOKE WITH DR. CHOE REGARDING UPDATES TO PT'S STATUS. HEMODYNAMICS AND EKG DISCUSSED. ORDERS RECEIVED, SEE CHART.
--- NOTE | 2021-11-04 20:03 | NUR ---
5 UNSUCESSFUL ATTEMPTS AT ESTABLISHING A-LINE AND COLLECTING ABG BY Moris MAXWELL RRT.
--- NOTE | 2021-11-04 20:44 | NUR ---
LABS COLLECTED FROM [facility].
--- NOTE | 2021-11-04 21:00 | NUR ---
HOURLY OUPUT FROM 1999 TO 2099, 150ML CLEAR YELLOW
[2021-11-04 21:13] LABS: ALKALINE PHOSPHATASE 109 u/l (38-126); BUN 34 mg/dL (8-23); BUN/CREATININE RATIO 40 (12-20 (CALC)); CARBON DIOXIDE 29 mmol/l (22-30); CHLORIDE 111 mmol/l (95-108); CREATININE 0.9 mg/dL (0.7-1.3); GFR > 60 ML/MIN (>=60 (CALC)); GFR FOR AFR.AMER. > 60 ML/MIN (>=60 (CALC)); HEMATOCRIT 43.9 % (39.0-50.0); HEMOGLOBIN 14.6 g/dl (14.0-18.0); IMMATURE GRANULOCYTES 2.3 % (0.0-5.0); MEAN CELL VOLUME 105.3 fL CALC (80.0-100.0); MEAN CORPUSCULAR HGB CONC 33.3 g/dL CAL (32.0-36.0); PLATELET COUNT 41 thou/uL (130-400); RED BLOOD COUNT 4.17 mill/uL (4.70-6.10); SGOT/AST 68 u/l (19-48); SODIUM 139 mmol/l (137-146)
--- NOTE | 2021-11-04 21:14 | NUR ---
A-LINE ESTABLISHED BY Olga ROQUE RN X1 ATTEMPT. BRENNEN COLLECTED.
[2021-11-04 21:28] LABS: BAND 4 % (0-8)
[2021-11-04 21:29] LABS: TOXIC GRANULATION MARKED
[2021-11-04 21:30] LABS: MANUAL DIFFERENTIAL YES
[2021-11-04 21:52] LABS: ANION GAP 4 (6-22 (CALC)); POTASSIUM 5.4 mmol/l (3.5-5.1); TOTAL PROTEIN 3.8 g/dL (6.3-8.2)
--- NOTE | 2021-11-04 22:00 | NUR ---
TEMPORAL TEMP 96.9, HESITANT TO TURN PT TO OBTAIN CORE TEMP D/T UNSTABLE HEMODYNAMICS. EXTREMITIES COOL TO TOUCH. ASHLEY HUGGER APPLIED TO WARM PT.
--- NOTE | 2021-11-04 23:00 | NUR ---
HOURLY OUTPUT 125ML FROM [id number]. CLEAR YELLOW.
--- NOTE | 2021-11-05 | NUR ---
URINARY OUTPUT 250ML CLEAR YELLOW URINE FROM 2300 TO 0000.
--- NOTE | 2021-11-05 00:10 | NUR ---
PT SUSTAINING ST ON MONITOR 150'S-160'S. DR. CHOE MADE AWARE. ORDER FOR AMIODARONE BOLUS AND GTT RECEIVED.
[2021-11-05 00:30] VITALS: BP 78/62
--- NOTE | 2021-11-05 01:00 | NUR ---
HOURLY OUTPUT 45ML FROM [phone].
--- NOTE | 2021-11-05 01:15 | NUR ---
LINENS CHANGED, PT REPOSITIONED. ORAL CARE AND SUCTIONING COMPLETE.
--- NOTE | 2021-11-05 01:55 | NUR ---
ABG COLLECTED FROM ART LINE.
--- NOTE | 2021-11-05 02:00 | NUR ---
20 ML OUTPUT [id number]
--- NOTE | 2021-11-05 02:13 | NUR ---
TELEPHONE CALL TO DR. CHOE, PROVIDED UPDATE. REVIEWED ABG RESULTS. REVIEWED HEMODYNAMICS. BP AND MAP LOW. HR SR 80S-90S. UNABLE TO OBTAIN SPO2. ORDER FOR LEVOPHED. QUESTIONED IF PT'S SON WAS AWARE OF PT'S PROGNOSIS OR IF HE NEEDED TO BE CALLED. DR. CHOE REPORTS SON IS AWARE OF PROGNOSIS.
--- NOTE | 2021-11-05 03:00 | NUR ---
NO OUTPUT THIS HOUR, [id number].
--- NOTE | 2021-11-05 03:35 | NUR ---
UPDATE PROVIDED TO DR. CHOE. NO CHANGES IN HYPOTENSION WITH THE ADDITION OF LEVOPHED. TITRATED UP TO 30MCG/MIN WITH NO EFFECT. PROPOFOL HAS BEEN TITRATED DOWN TO 5MCG WITH NO CHANGE IN SEDATION. RASS -5.
--- NOTE | 2021-11-05 04:01 | NUR ---
PROPOFOL TURNED OFF AT THIS TIME.
--- NOTE | 2021-11-05 04:15 | NUR ---
NO CHANGE IN SEDATION WITH PROPOFOL OFF. RASS REMAINS -5.
--- NOTE | 2021-11-05 04:25 | NUR ---
PT'S REMAINS SB 30'S WITH A ART LINE B/P OF 40/30SmmHg AND MAP 20'S. UNABLE TO REGISTER SP02 AT THIS TIME. PT'S COLOR HAS BEGUN TO APPEAR CYANOTIC. FIO2 100% WITH A RR 30 AND TV 360 AND PEEP OF 10. PULSES PRESENT BUT THREADY AND DIFFICULT TO PALPATE.
--- NOTE | 2021-11-05 04:26 | NUR ---
HEART RATE BEGINS TO DECREASE QUICKLY FROM 90S, TO THE 50'S AND QUICKLY DOWN TO THE 30'S.
--- NOTE | 2021-11-05 04:36 | NUR ---
SPOKE WITH PT'S SON LÓPEZ PERSAUD . STATES "MY DAD WOULD NOT WANT TO BE CODED LIKE THAT". PT'S LIVING WILL REVIEWED AND EXPRESSES WISHES CONSISTENT WITH SONS REPORT. LÓPEZ PERSAUD REQUEST DNR STATUS AT THIS TIME. LÓPEZ PERSAUD'S WISHES WITNESSED AND CONFIRMED BY Felix BOND RN AND Aruna NOWAK RN.
--- NOTE | 2021-11-05 04:41 | NUR ---
DR. CHOE MADE AWARE OF PT SONS REQUEST OF DNR AND CONSISTENCY WITH PT'S LIVING WILL DECLARATION. ORDER FOR DNR RECEIVED AT THIS TIME.
--- NOTE | 2021-11-05 04:50 | NUR ---
POST MORTEM CARE PROVIDED. PT PREPARED FOR HOSEMAN.
--- NOTE | 2021-11-05 05:12 | NUR ---
DR. CHOE MADE AWARE OF PT'S EXPIRATION.
--- NOTE | 2021-11-05 05:13 | NUR ---
CALL TO [employer] SPOKE WITH AIMEE AND GAVE REFERRAL INFORMATION. PATIENT WAS DECLINED FOR ALL DONATIONS D/T POSITIVE COVID STATUS. REFERENCE NUMBER [id number].
--- NOTE | 2021-11-05 05:20 | NUR ---
SPOKE WITH SON LÓPEZ , CARLIE [facility] DESIGNATED FOR OCEAN FISHING GUIDE. ALLOWED TIME FOR QUESTIONS AND EXPRESSION OF GRIEF. CONDOLONCES OFFERED.
--- NOTE | 2021-11-05 05:24 | NUR ---
CALLED [employer] FOR TERRITORY SERVICE REPRESENTATIVE.
--- NOTE | 2021-11-05 07:27 | NUR ---
home here for bead picker, papers signed and completed.
== END 2021-11-05 07:25 | disposition expired | DRG 208 ==
LOC: ED 12:01 → ED-I 14:55 → ED 15:04 → ED-I 15:04 → ICU 15:04
PROVIDERS: Emergency Medicine; Hospitalist; Internal Medicine; Nurse Practitioner; ADMIT Internal Medicine; ATTEND Internal Medicine
PROC: 5A09357 Assistance with Respiratory Ventilation, Less than 24 Consecutive Hours, Continuous Positive Airway Pressure (ICD-10-PCS; principal; 2021-10-27)
PROC: XW033E5 Introduction of Remdesivir Anti-infective into Peripheral Vein, Percutaneous Approach, New Technology Group 5 (ICD-10-PCS; 2021-10-28)
PROC: XW033H5 Introduction of Tocilizumab into Peripheral Vein, Percutaneous Approach, New Technology Group 5 (ICD-10-PCS; 2021-10-30)
PROC: 0T9B70Z Drainage of Bladder with Drainage Device, Via Natural or Artificial Opening (ICD-10-PCS; 2021-11-02)
PROC: 5A09357 Assistance with Respiratory Ventilation, Less than 24 Consecutive Hours, Continuous Positive Airway Pressure (ICD-10-PCS; 2021-11-03)
PROC: 5A1935Z Respiratory Ventilation, Less than 24 Consecutive Hours (ICD-10-PCS; 2021-11-04)
PROC: 0BH17EZ Insertion of Endotracheal Airway into Trachea, Via Natural or Artificial Opening (ICD-10-PCS; 2021-11-04)
DX: U07.1 COVID-19 (principal); J12.82 Pneumonia due to coronavirus disease 2019; J96.01 Acute respiratory failure with hypoxia; C91.10 Chronic lymphocytic leukemia of B-cell type not having achieved remission; I10 Essential (primary) hypertension; J98.2 Interstitial emphysema; D69.59 Other secondary thrombocytopenia; T45.515A Adverse effect of anticoagulants, initial encounter; I48.91 Unspecified atrial fibrillation; I95.9 Hypotension, unspecified; Z66 Do not resuscitate; Z92.21 Personal history of antineoplastic chemotherapy; Z79.899 Other long term (current) drug therapy
CPT/HCPCS: J0282; J1160; J1650; J3262; Q9967